=== PATIENT | female | born 1980 | race Caucasian/White ===

== ENCOUNTER 2020-09-07 07:39 | Day surgery (SDC) | payer BC ==
[~2020-09-07 07:39] MED LIST: Dexamethasone 4 MG/ML 5 ML MDV ONE; Ketamine 500 mg/10 ML MDV ONE; Ketorolac 15 MG/ML SDV ONE; Lactated Ringers 1,000 ML IV SCH; Lactated Ringers 1,000 ML ONE; Lidocaine 1% 4 ML ONE; Lidocaine 1%/Sod Bicarbonate in NS 8.4% 1 ML Syringe IDERM PRN; Midazolam 1 MG/ML 2 ML SDV ONE; Ondansetron 4 MG/2 ML SDV ONE; Propofol 200 MG/20 ML SDV ONE; Rocuronium 50 MG/5 ML Vial ONE; Sodium Chloride 0.9% 10 ML Syringe FLUSH PRN; ceFAZolin 1 GM Vial ONE; fentaNYL 250 MCG/5 ML SDV ONE
[2020-09-07] MEDS ORDERED: Sodium Chloride 0.9% 50 ML SDV ONE (07:56)
[2020-09-07] MEDS ORDERED: Lidocaine 1% with EPINEPHrine 1:100,000 20 ML MDV ONE (07:56)
[2020-09-07] MEDS ORDERED: Bupivacaine 0.5% 30 ML SDV ONE (07:56)
[2020-09-07] MEDS ORDERED: Albuterol 0.083% 2.5 MG/3 ML Neb Soln NEB SCH (07:57)
[2020-09-07] MEDS ORDERED: HYDROmorphone 0.5 MG/0.5 ML Syringe IVPUSH PRN (09:49)
[2020-09-07] MEDS ORDERED: Ondansetron 4 MG/2 ML SDV IVPUSH PRN (09:49)
[2020-09-07] MEDS ORDERED: fentaNYL 100 MCG/2 ML SDV IVPUSH PRN (09:49)
--- NOTE | 2020-09-07 09:53 | PCM.PREANE ---
Preanesthetic Assessment - Procedure Proposed Procedure: LAV - Anesthesia/Transfusion/Family Hx Anesthesia History: Prior Anesthesia Without Reaction Family History of Anesthesia Reaction: No Transfusion History: No Prior Transfusion(s) - Review of Systems General: No Symptoms Pulmonary: Cough (Occasional in mornings. 1/2 ppd smoker for 20 years) Cardiovascular: No Symptoms Gastrointestinal: No Symptoms Neurological: Headache (Migraines) Other: Reports: Depression - Physical Assessment NPO Status Date: 09/06/20 NPO Status Time: 22:00 Vital Signs: Last Vital Signs Temp 36.9 C 09/07/20 07:45 Pulse 110 H 09/07/20 07:45 Resp 16 09/07/20 07:45 BP 125/81 09/07/20 07:45 Pulse Ox 96 09/07/20 07:57 Height: 1.68 m Weight: 73.936 kg ASA Class: 2 Mental Status: Alert & Oriented x3 Airway Class: Mallampati = 2 Dentition: Reports: Caries Thyro-Mental Finger Breadths: 2 Mouth Opening Finger Breadths: 3 (Uvula bent to side does not hang midline. ) ROM/Head Extension: Full Lungs: Clear to Auscultation, Normal Respiratory Effort Cardiovascular: Regular Rate, Regular Rhythm - Lab Values: Laboratory Last Values Urine Color Yellow (Yellow) 09/07/20 07:40 Urine Appearance Clear (Clear) 09/07/20 07:40 Urine pH 6.0 (5.0-8.0) 09/07/20 07:40 Ur Specific [place] > or = 1.030 (1.005-1.030) 09/07/20 07:40 Urine Protein Trace (Negative) H 09/07/20 07:40 Urine Glucose (UA) Negative (Negative) 09/07/20 07:40 Urine Ketones Trace (Negative) H 09/07/20 07:40 Urine Occult Blood 2+ (Negative) H 09/07/20 07:40 Urine Nitrite Negative (Negative) 09/07/20 07:40 Urine Bilirubin 1+ (Negative) H 09/07/20 07:40 Urine Urobilinogen 1.0 (0.2-1.0) 09/07/20 07:40 Ur Leukocyte Esterase Trace (Negative) H 09/07/20 07:40 Urine HCG, Qual Negative (NEGATIVE) 09/07/20 07:40 - Allergies Allergies/Adverse Reactions: Allergies Allergy/AdvReac Type Severity Reaction Status Date / Time clindamycin Allergy Shortness Verified 09/07/20 08:35 of Breath - Anesthesia Plan Pre-Op Medication Ordered: Anxiolytic - Acknowledgements Anesthesia Type Planned: General Anesthesia Pt an Appropriate Candidate for the Planned Anesthesia: Yes Alternatives and Risks of Anesthesia Discussed w Pt/Guardian: Yes Pt/Guardian Understands and Agrees with Anesthesia Plan: Yes PreAnesthesia Questionnaire - Past Health History Medical/Surgical History: Denies Medical/Surgical History HEENT History: Reports: Allergic Rhinitis Cardiovascular History: Reports: None Respiratory History: Reports: None Gastrointestinal History: Reports: None Genitourinary History: Reports: None SIGNAL MANAGER History: Reports: None Musculoskeletal History: Reports: None Neurological History: Reports: Migraines Psychiatric History: Reports: None Endocrine/Metabolic History: Reports: None Hematologic History: Reports: None Immunologic History: Reports: None Oncologic (Cancer) History: Reports: None Dermatologic History: Reports: None - Past Surgical History Head Surgeries/Procedures: Reports: None HEENT Surgical History: Reports: Myringotomy w Tube(s), Tonsillectomy Cardiovascular Surgical History: Reports: None Respiratory Surgical History: Reports: None GI Surgical History: Reports: None Female Surgical History: Reports: Section, Tubal Ligation Endocrine Surgical History: Reports: None Neurological Surgical History: Reports: None Musculoskeletal Surgical History: Reports: None Oncologic Surgical History: Reports: None Dermatological Surgical History: Reports: None - SUBSTANCE USE Tobacco Use Status *Q: Current Every Day Tobacco User Recreational Drug Use History: No - HOME MEDS Home Medications: Home Meds . [No Known Home Meds] 09/06/20 [History] - CURRENT (IN HOUSE) MEDS Current Meds: Current Medications Albuterol (Proventil Neb Soln) 2.5 mg NEB ONETIME VALDEZ Stop: 09/07/20 12:00 Last Admin: 09/07/20 08:13 Dose: 2.5 mg Documented by: Lactated Ringer's (Ringers, Lactated) 1,000 mls @ 125 mls/hr IV ASDIRECTED VALDEZ Stop: 09/07/20 23:00 Last Admin: 09/07/20 07:55 Dose: 125 mls/hr Documented by: Lidocaine/Sodium Bicarbonate (Buffered Lidocaine 1% In Ns 8.4%) 0.25 ml IDERM ONETIME PRN PRN Reason: Prior to IV Start Stop: 09/07/20 18:00 Last Admin: 09/07/20 07:55 Dose: 0.25 ml Documented by: Sodium Chloride (Saline Flush) 10 ml FLUSH ASDIRECTED PRN PRN Reason: Keep Vein Open Stop: 09/07/20 18:00 Discontinued Medications Bupivacaine HCl (Marcaine 0.5%) Confirm Administered Dose 30 ml .ROUTE .STK-MED ONE Stop: 09/07/20 07:57 Cefazolin Sodium (Ancef) Confirm Administered Dose 2 gm .ROUTE .STK-MED ONE Stop: 09/07/20 07:16 Dexamethasone (Dexamethasone) Confirm Administered Dose 20 mg .ROUTE .STK-MED ONE Stop: 09/07/20 07:17 Fentanyl (Sublimaze) Confirm Administered Dose 250 mcg .ROUTE .STK-MED ONE Stop: 09/07/20 07:17 Lidocaine HCl (Xylocaine-Mpf 1%) Confirm Administered Dose 4 mls @ as directed .ROUTE .STK-MED ONE Stop: 09/07/20 07:16 Lactated Ringer's (Ringers, Lactated) Confirm Administered Dose 1,000 mls @ as directed .ROUTE .STK-MED ONE Stop: 09/07/20 07:16 Ketamine HCl (Ketalar) Confirm Administered Dose 500 mg .ROUTE .STK-MED ONE Stop: 09/07/20 07:21 Ketorolac Tromethamine (Toradol) Confirm Administered Dose 15 mg .ROUTE .STK-MED ONE Stop: 09/07/20 07:17 Lidocaine/Epinephrine (Xylocaine 1% With Epinephrine 1:100,000) Confirm Administered Dose 20 ml .ROUTE .STK-MED ONE Stop: 09/07/20 07:57 Midazolam HCl (Versed 1 Mg/Ml) Confirm Administered Dose 2 mg .ROUTE .STK-MED ONE Stop: 09/07/20 07:16 Ondansetron HCl (Zofran) Confirm Administered Dose 4 mg .ROUTE .STK-MED ONE Stop: 09/07/20 07:16 Propofol (Diprivan 20 Ml) Confirm Administered Dose 400 mg .ROUTE .STK-MED ONE Stop: 09/07/20 07:16 Rocuronium [place] (Zemuron) Confirm Administered Dose 50 mg .ROUTE .STK-MED ONE Stop: 09/07/20 07:16 Sodium Chloride (Normal Saline) Confirm Administered Dose 50 ml .ROUTE .[facility] ONE Stop: 09/07/20 07:57
[2020-09-07] MEDS ORDERED: Propofol 200 MG/20 ML SDV ONE (09:57)
[2020-09-07] MEDS ORDERED: fentaNYL 100 MCG/2 ML SDV ONE (11:07)
--- NOTE | 2020-09-07 11:49 | PCM.POSTAN ---
POST ANESTHESIA ASSESSMENT - MENTAL STATUS Mental Status: Oriented, Other (Drowsy) - VITAL SIGNS Vital Signs: Last Vital Signs Temp 36.9 C 09/07/20 07:45 Pulse 110 H 09/07/20 07:45 Resp 16 09/07/20 07:45 BP 125/81 09/07/20 07:45 Pulse Ox 96 09/07/20 07:57 1140 137/87 90 10 99% 97.9F - RESPIRATORY Respiratory Status: Respiratory Rate WNL, Airway Patent, O2 Saturation Stable, Supplemental Oxygen - CARDIOVASCULAR CV Status: Pulse Rate WNL, Blood Pressure Stable - GASTROINTESTINAL GI Status: No Symptoms - PAIN Pain Score: 0 - POST OP HYDRATION Hydration Status: Adequate & Stable
--- NOTE | 2020-09-07 12:03 | PCM.OPNOTE ---
- General Post-Op/Procedure Note Date of Surgery/Procedure: 09/07/20 Operative Procedure(s): Laparoscopically assisted vaginal hysterectomy with bilateral salpingectomy and repair of 2 bladder lacerations that occurred intraoperatively Findings: Grossly normal-appearing uterus and bilateral ovaries. Distal tubal fragments were normal-appearing bilaterally. There was a midportion of the bilateral fallopian tubes that had been previously surgically excised. There were 2 bladder lacerations that were noted during the case both measuring approximately 4 mm in width that were repaired with double layer closure using 4-0 Monocryl suture. The bladder was hydrostatic at the end of the case as tested with sterile milk and saline. The visualized portions of the intestines was normal and the appendix was normal. Visualized portions of the liver were normal in appearance. Pre Op Diagnosis: Abnormal uterine bleeding, heavy menstrual bleeding and dysmenorrhea Post-Op Diagnosis: Same, incidental intraoperative bladder lacerations x2 measur ing approximately 4 mm in width that were repaired intraoperatively Anesthesia Technique: General ET Tube Primary Surgeon: Horace Martinez Anesthesia Provider: Harriett Song Supervisor [employer]: Octavio Aldridge Supervisor [employer]: Annetta Martínez ([place] Student) Reason Supervisor Water Treatment Plant Was Necessary: Patient safety and reduction of morbidity and mortality. Role of Supervisor Water Treatment [employer]: Retraction for visualization and use of laparoscopic instruments during the laparoscopic portion of the case. Pathology: Uterus, cervix and bilateral tubal fragments Fluid Replacement, Intraop: 2,200 Output, Urine Amount: 100 EBL in mLs: 550 Drain/Tube Comments:: Mandujano bladder catheter left in place for bladder decompression Complications: Incidental bladder lacerations x2 of the dome of the bladder during entry into the anterior cul-de-sac. Condition: Good Free Text/Narrative:: The patient was seen in the preoperative holding area and risks, benefits, indications, and alternatives of the procedure were reviewed with the patient and she desired to proceed with a laparoscopic assisted vaginal hysterectomy, bilateral salpingectomy, possible unilateral or bilateral salpingo-oophorectomy and possible total abdominal hysterectomy. Consents were reviewed. The patient was taken back to the OR and given general anesthesia with an endotracheal tube which was placed without difficulty. She was placed in dorsal lithotomy position using Yellofin stirrups. She was prepped and draped in normal sterile fashion. A Mandujano catheter was placed without difficulty. Attention was then turned to her umbilicus and it was injected with 0.5% Marcaine and a 5 mm stab incision was made with a scalpel and a Veress needle was then inserted through the incision. The gas was turned on, with an opening pressure of 7 mmHg. Pneumoperitoneum was continued until 15 mmHg pressure. A 5 mm trocar was then inserted under direct visualization through the incision without difficulty. Attention was then turned to the patient's right lower quadrant where an avascular space approximately care home between the ASIS and the umbilicus was identified. Local anesthetic was injected and a 5 mm incision was made with a scalpel. A 5 mm trocar was then inserted under direct visualization of the laparoscope. Attention was then turned to the left lower quadrant, where again an avascular portion of the abdominal wall was identified approximately care home between the ASIS and the umbilicus. Local anesthetic was injected and a scalpel was used to make a 5 mm incision. A 5 mm trocar was inserted under direct visualization with the laparoscope. Attention was then turned to the pelvis where the uterus was visualized and noted be normal in appearance with normal appearing bilateral fallopian tubes with previous surgically excised portions of the midportion of the fallopian tube and normal-appearing bilateral ovaries. The atraumatic grasper was then removed from the right lower trocar and a Enseal vessel sealing device was introduced and was used to transect the right fallopian tube. The mesosalpinx connecting the right fallopian tube segment was transected from the ovary and underlying tissue. This portion of the fallopian tube was removed and sent for pathology with the remainder of the pathology specimen at the end of the case. The right round ligament was then transected using the Enseal vessel sealing device. The utero-ovarian ligament was then transected using the Enseal vessel sealing device. The right side of the uterus and broad ligament were then transected using the Enseal vessel sealing device until the level of the uterovesical peritoneal reflection. This was repeated on the patient's left side. The fallopian tube segment was transected from the mesosalpinx using the Enseal vessel sealing device. The segment was then removed from the abdominal cavity and sent for pathology with the remainder of the pathology specimen at the end of the case. The utero- ovarian ligament was then transected using Enseal vessel sealing device. The left round ligament was transected using Enseal vessel sealing device and the broad ligament was transected to the level of the uterovesical peritoneal reflection. The pelvis was then inspected for hemostasis at this time and hemostasis was noted. All instruments were removed from the abdomen. Attention was then turned to the patient's perineum where a weighted speculum was placed into the vagina and a Drew retractor was used to visualize the cervix. The cervix was grasped with a double-tooth tenaculum. The cervical reflection point was then injected circumferentially with 0.25% lidocaine with epinephrine. The cervix was then circumferentially incised with a scalpel. The bladder was then dissected off the pubovesical cervical fascia anteriorly with Metzenbaum scissors. During the attempted entry in the anterior cul-de-sac there was a suspected injury to the bladder with notation of suspected urine coming out during the attempted entry. Sterile milk and saline was backfilled into the bladder using the previously placed Mandujano catheter and there was noted to be return of sterile milk from an area of bladder laceration. The ends of the bladder laceration were tagged using 4-0 Monocryl suture. The lateral laceration was repaired in a single layer using 4-0 Monocryl suture. Decision was made to complete the hysterectomy portion of the procedure before finishing the bladder repair. The posterior cul-de-sac was entered sharply without difficulty using Metzenbaum scissors. At this point, an Enseal vessel sealing device was placed over the uterosacral ligaments on the patient's left side. These were cauterized and ligated with the device. This was repeated on the patient's right side. Hemostasis was assured. The cardinal ligaments were then clamped on both sides using the Enseal vessel sealing device, cauterized and transected with the device. The uterine artery on the patient's right side side and the remainder of the broad ligament were then serially clamped with the Enseal vessel sealing device, cauterized and transected with the device. Excellent hemostasis was noted. The cervix and uterus was able to be delivered at this time. The posterior vaginal cuff was closed with running locked sutures of 0 Monocryl. At this time there was noted to be some additional bleeding from the right uterine vein and this was clamped using a Theresa clamp and free tied with 0 Monocryl suture. There is additional bleeding from the surgical bed along the right lateral portion of the uterine broad ligament. This was clamped using a Theresa clamp and suture ligated using Theresa stitch with 0 Monocryl suture. There was a small branch of the uterine artery on the patient's left side that was noted to be bleeding and this was cauterized using the Enseal vessel sealing device. Hemostasis was noted at this time. Attention was then turned to the previous area with the bladder lacerations. The bladder laceration that had the initial repair with a 4-0 Monocryl suture was visualized and there was noted to be a second area of bladder laceration that was measuring approximately 4 mm in size. This was closed with running suture of 4-0 Monocryl. A second imbricating layer was placed over this area of bladder laceration. Attention was then turned to the first bladder laceration and this was repaired with a second imbricating layer of 4-0 Monocryl suture. The bladder was then backfilled with sterile milk and saline with approximately 250 mL of fluid instilled into the bladder and the areas of repair on the bladder were noted to be hydrostatic. The Mandujano catheter was reattached to allow the bladder to drain at this time. The vaginal cuff was then closed in a horizontal fashion using running locked sutures with 0 Monocryl suture. The abdomen was inflated using carbon dioxide gas. There was a single area on the posterior vaginal cuff at approximately the 7 o'clock position that was noted to not have full pneumoperitoneum and a [id number] suture with 0 Monocryl was placed with pneumoperitoneum noted at this time. All instruments were removed from the vagina. Attention was then turned to the abdomen where a laparoscope was inserted and was used to check for hemostasis. Hemostasis was noted at this time. The case was complete at this time. The gas was then evacuated from the peritoneum and trocars removed. These were closed using 4-0 Monocryl suture and Dermabond. The patient was awoken from general anesthesia and taken to the PACU for recovery in stable condition. She will be discharged to home once she is able to meet all postoperative milestones including tolerating small amount of oral intake and liquids, ambulate without difficulty, her pain controlled with oral medications and able to void without difficulty. She will follow-up in the clinic in 2 weeks or earlier as needed. Patient will be discharged home with the Mandujano catheter in place and she will have this in place for 2 weeks until she is return to the clinic. At that time we will remove the Mandujano catheter and perform a voiding trial. Sponge, lap, needle, and instrument counts were correct x 2. Horace Martinez MD 12:03 PM 09/07/2020
[2020-09-07] MEDS ORDERED: oxyCODONE 5 MG Tab PO ONE (15:00)
--- NOTE | 2020-09-07 16:10 | PCM48HPAN ---
Post Anesthesia Note - EVALUATION WITHIN 48HRS OF ANESTHETIC Vital Signs in Normal Range: Yes Patient Participated in Evaluation: Yes Respiratory Function Stable: Yes Airway Patent: Yes Cardiovascular Function Stable: Yes Hydration Status Stable: Yes Pain Control Satisfactory: Yes Nausea and Vomiting Control Satisfactory: Yes Mental Status Recovered: Yes Vital Signs: Last Vital Signs Temp 36.9 C 09/07/20 15:00 Pulse 89 09/07/20 15:00 Resp 16 09/07/20 15:00 BP 112/64 09/07/20 15:00 Pulse Ox 95 09/07/20 15:00
== END 2020-09-07 17:25 | disposition home or self-care (01) ==
LOC: JD.SDS 07:39
PROVIDERS: ATTEND Obstetrics & Gynecology
DX: N80.0 Endometriosis of uterus (principal); N72 Inflammatory disease of cervix uteri; N87.9 Dysplasia of cervix uteri, unspecified; N88.0 Leukoplakia of cervix uteri; N73.6 Female pelvic peritoneal adhesions (postinfective); F32.9 Major depressive disorder, single episode, unspecified; F17.210 Nicotine dependence, cigarettes, uncomplicated; Z88.1 Allergy status to other antibiotic agents; Z98.890 Other specified postprocedural states
CPT/HCPCS: 58552; 81003; 81025; 94640; J0690; J1100; J1170; J1885; J2001; J2250; J2405; J2704; J3010; J3490; J7120; 00944